=== PATIENT | female | born 1985 ===

== ENCOUNTER → 2022-09-27 | Outpatient (CLI) | payer OTHER ==
[2022-09-28 10:50] LABS: Candida species (DNA Probe) Negative (NEGATIVE); G. vaginalis (DNA Probe) Negative (NEGATIVE); T. vaginalis (DNA Probe) Negative (NEGATIVE)
== END | disposition home or self-care (01) ==
LOC: LAB SHORT 18:10
PROVIDERS: Physician Assistant
DX: N89.8 Other specified noninflammatory disorders of vagina (principal)
CPT/HCPCS: 87480; 87510; 87660

== ENCOUNTER → 2022-10-25 | Outpatient (CLI) | payer BC ==
[2022-10-26 15:09] LABS: HPV 16 Negative (Negative); HPV 18 Negative (Negative); HPV OTHER HR TYPES Negative (Negative)
== END | disposition home or self-care (01) ==
LOC: LAB SHORT 16:45 → LAB 16:45
PROVIDERS: Advanced Practice Midwife
DX: Z01.419 Encounter for gynecological examination (general) (routine) without abnormal findings (principal)
CPT/HCPCS: 87624; G0145

== ENCOUNTER 2023-02-14 11:28 | Day surgery (SDC) | payer BC ==
[~2023-02-14] VITALS: Ht 162.6 cm; Wt 77.0 kg
[2023-02-14] MEDS ORDERED: BUPROPION XL450 MG (12:08)
[2023-02-14] MEDS ORDERED: BUSP10 (12:08)
[2023-02-14] MEDS ORDERED: GABA100 (12:09)
[2023-02-14] MEDS ORDERED: FISH OIL 1,2001 EAC7 (12:09)
[2023-02-14] MEDS ORDERED: PRENATAL TABLE1 EAC2 (12:09)
--- NOTE | 2023-02-14 12:55 | NUR ---
02/14/23 1254 Kimmy Vogel HEAD ON PILLOW, NICHOLAS LOPEZ, ARMS SECURED ON PADDED ARM BOARDS.
[2023-02-14 13:44] VITALS: BP 110/68
--- NOTE | 2023-02-14 14:11 | NUR ---
02/14/23 1411 CRESENCIO OWUSU TYLENOL 1,000MG GIVEN FOR PAIN/VERBAL ORDER FROM DR. SYKES. PT PAIN 07/28.
== END 2023-02-14 14:52 | disposition home or self-care (01) ==
LOC: ORSCSDS 11:28
PROVIDERS: Obstetrics & Gynecology
PROC: 10D17ZZ Extraction of Products of Conception, Retained, Via Natural or Artificial Opening (ICD-10-PCS; principal; 2023-02-14 12:30)
DX: O02.1 Missed abortion (principal); F31.81 Bipolar II disorder; F41.9 Anxiety disorder, unspecified; Z79.899 Other long term (current) drug therapy; F17.290 Nicotine dependence, other tobacco product, uncomplicated
CPT/HCPCS: 76998; 84702; 84703; 88305; A9270; J1100; J1885; J2210; J2250; J2405; J2704; J2791; J3010; J7120; Q5110